=== PATIENT | female | born 1975 | race Hispanic/Latino ===

== ENCOUNTER 2022-04-12 15:02 | Emergency (ER) | payer SELFPAY ==
[2022-04-12] MEDS ORDERED: Morphine 10 MG/ML VIAL ONE (15:21)
[2022-04-12] MEDS ORDERED: predniSONE 20 MG TAB ONE (15:21)
[2022-04-12] MEDS ORDERED: Nitroglycerin 50 MG/250 ML BOT 0 ML ONE (18:01)
== END 2022-04-12 15:44 | disposition home or self-care (01) ==
LOC: BURERS 15:02
DX: M79.605 Pain in left leg (principal)
CPT/HCPCS: 96372; 99283; J2270; J7512